=== PATIENT | male | born 1950 | race African-American/Black ===

== ENCOUNTER 2017-08-09 05:42 | Emergency (ER) | payer OTHER, MEDICAID ==
[~2017-08-09] VITALS: Ht 185.4 cm; Wt 104.3 kg
[2017-08-09] MEDS ORDERED: SODIUM BICARBONATE 8.4% INJ 50ML SYRINGE IV ONE (05:46)
[2017-08-09] MEDS ORDERED: EPINEPHrine HCL 1 MG/10 ML SYRG IV ONE (05:46)
[2017-08-09] MEDS ORDERED: ATROPINE SULF 0.5 MG/5ML SYR IV ONE (05:46)
[2017-08-09] MEDS ORDERED: SODIUM BICARBONATE 8.4% INJ 50ML SYRINGE ONE (05:51)
[2017-08-09] MEDS ORDERED: EPINEPHrine HCL 1 MG/10 ML SYRG ONE (05:57)
[2017-08-09 06:19] LABS: Basophils # (auto) 0.1 uL; Eosinophils # (auto) 0.1 uL; Monocytes # (auto) 0.8 uL
[2017-08-09 06:35] LABS: INR 1.17 (0.9-1.15); Partial Thromboplastin Time 37.8 sec (22.64-33.71); Prothrombin Time 12.8 sec (9.37-12.3)
[2017-08-09 06:44] LABS: Basophils % (auto) 0.9 % (0.0-2.0); Hematocrit 24.2 % (41.0-53.0); Hemoglobin 7.5 g/dL (13.5-17.5); Lymphocytes % (auto) 43.2 % (10.0-50.0); Mean Corpuscular Hemoglobin 27.8 pg (28.0-32.0); Mean Corpuscular Hgb Conc. 30.9 g/dL (32.0-36.0); Mean Corpuscular Volume 89.9 fL (80.0-100.0); Monocytes % (auto) 10.9 % (0.0-12.0); Nucleated Red Blood Cells % 0.7 %; Platelet Count (auto) 67 10^3/uL (140-450); Red Cell Distribution Width 16.7 % (11.8-14.3); White Blood Cell 6.9 10^3/uL (4.4-10.8)
[2017-08-09 06:45] LABS: BUN/Creatinine Ratio 8.8; Potassium 4.6 mmol/L (3.5-5.1)
[2017-08-09 06:46] LABS: Bilirubin, Total 0.4 mg/dL (0.2-1.0); Calcium 8.4 mg/dL (8.5-10.1); Magnesium 2.2 mg/dL (1.6-2.6); Total Protein 6.7 g/dL (6.4-8.2)
== END 2017-08-09 08:39 | disposition expired ==
LOC: EDBD 05:42 → ER 05:45
DX: I46.9 Cardiac arrest, cause unspecified (principal); I48.91 Unspecified atrial fibrillation; I11.0 Hypertensive heart disease with heart failure; I50.9 Heart failure, unspecified; R41.82 Altered mental status, unspecified
CPT/HCPCS: 31500; 36415; 80053; 83735; 84484; 85025; 85610; 85730; 92950; 99285; J0171; J0461